=== PATIENT | male | born 1960 | race Caucasian/White ===

== ENCOUNTER 2023-08-19 09:45 | Outpatient (RCR) | payer OTHER, SELFPAY | END 2023-08-19 10:16 | disposition home or self-care (01) | PROVIDERS: PCP Surgery; Visit Provider Surgery | DX: M67.922 Unspecified disorder of synovium and tendon, left upper arm (principal); M25.512 Pain in left shoulder; Z74.09 Other reduced mobility; R53.1 Weakness; Z51.89 Encounter for other specified aftercare | CPT/HCPCS: 97110; 97140; 97161 ==

== ENCOUNTER 2024-09-30 10:15 | Outpatient (RCR) | payer OTHER, SELFPAY | END 2024-12-29 09:22 | disposition home or self-care (01) | PROVIDERS: PCP Surgery; Visit Provider Surgery | DX: M77.11 Lateral epicondylitis, right elbow (principal); R53.1 Weakness; M25.521 Pain in right elbow; M25.621 Stiffness of right elbow, not elsewhere classified; Z51.89 Encounter for other specified aftercare | CPT/HCPCS: 97033; 97035; 97140; 97165 ==